=== PATIENT | female | born 1960 | race Caucasian/White ===

== ENCOUNTER → 2017-06-03 | Outpatient (CLI) | payer OTHER ==
--- NOTE | 2017-06-03 13:26 | REP ---
BILATERAL DIGITAL SCREENING MAMMOGRAM: 06/03/2017 COMPARISON: 04/15/2016, 04/14/2015. CLINICAL HISTORY: Screening mammogram. No current complaint, personal history of breast cancer but there is a family history of maternal breast cancer at age 55 and breast cancer in a grandmother. FINDINGS. Standard two-view mammography performed. There are a few scattered fibroglandular elements in the breast parenchyma in a pattern and distribution grossly unchanged but which might obscure a lesion. In the upper outer quadrant of the right breast about the 10:30 position in the anterior one-third of the breast is a 6 x 5 mm oval nodule, new since the previous two examinations. There are no suspicious clusters of microcalcification, areas of architectural distortion, dominant masses or other secondary signs of malignancy. IMPRESSION: BIRADS ACR category 0, incomplete. Needs further imaging evaluation. In the upper outer quadrant right breast about the 10:30 position in the anterior one-third of that breast is a new 6 x 5 mm oval nodule. This warrants further evaluation with diagnostic mammography and ultrasound. This mammogram was interpreted with the aid of an FDA-approved computer-aided detection system. A. Negative x-ray reports should not delay biopsy if a dominant or clinically suspicious mass is present. B. Four to eight percent of cancers are not identified by x-ray. C. Adenosis and dense breasts may obscure an underlying neoplasm. The patient states that she/he has not had a clinical breast exam in over a year. The patient letter being requested is M4 Signed by Alfredo Fair MD 06/03/2017 07:01 P
== END ==
LOC: M RAD 11:45
PROVIDERS: ATTEND Family Medicine
DX: Z12.31 Encounter for screening mammogram for malignant neoplasm of breast (principal); Z80.3 Family history of malignant neoplasm of breast; R92.2 Inconclusive mammogram

== ENCOUNTER → 2017-06-11 | Outpatient (CLI) | payer OTHER ==
--- NOTE | 2017-06-11 12:32 | REP ---
DIAGNOSTIC MAMMOGRAM RIGHT BREAST WITH RIGHT BREAST ULTRASOUND: Diagnostic mammogram right breast is performed with multiple spot compression views obtained. These additional views confirm the presence of a small round nodule in the upper outer quadrant of the right breast measuring about 6 mm in diameter. The majority of the margins appear fairly well defined and smoothly marginated. Real-time sonographic evaluation of the upper outer quadrant of the right breast demonstrates a lobulated cyst containing a septation, approximately 6 x 4 x 8 mm. This appears to correspond to the mammographic abnormality and is benign. IMPRESSION: The nodule in the upper outer quadrant of the right breast corresponds to a cyst by ultrasound and is benign. ACR 2. Recommend followup mammogram in 1 year. BI-RADS/ACR category 2 mammogram. Benign finding(s). Routine annual screening mammography (for women over age 40). Patient letter M1. Unreviewed
== END ==
LOC: M RAD 10:35
PROVIDERS: ATTEND Family Medicine
DX: Z12.31 Encounter for screening mammogram for malignant neoplasm of breast (principal); R92.8 Other abnormal and inconclusive findings on diagnostic imaging of breast
CPT/HCPCS: 76642; G0206

== ENCOUNTER → 2018-06-12 | Outpatient (CLI) | payer OTHER | LOC: M RAD 13:06 | DX: Z12.31 Encounter for screening mammogram for malignant neoplasm of breast (principal) | CPT/HCPCS: 77067 ==

== ENCOUNTER → 2019-11-05 | Outpatient (CLI) | payer OTHER ==
--- NOTE | 2019-11-05 11:46 | REPMRS ---
Patient History The patient states she has not had a clinical breast exam in over a year. Family history of unknown cancer at age 55 in mother, breast cancer at age 50 or over in maternal grandmother. Digital Mammo Screening Bilat: November 05, 2019 - Exam #: [id number] Bilateral CC and MLO view(s) were taken. Technologist: Kylie Lomax, Technologist Prior study comparison: June 12, 2018, bilateral digital mammo screening bilat performed at [facility]. June 03, 2017, bilateral digital mammo screening bilat performed at [facility]. April 15, 2016, bilateral digital mammo screening bilat performed at [facility]. April 14, 2015, bilateral digital mammo screening bilat performed at [facility]. FINDINGS: There are scattered fibroglandular densities. There has been no change in the appearance of the mammogram from the prior studies. There is a mild amount of scattered fibroglandular density which is fairly symmetric. There is no interval development of dominant mass, architectural distortion, or grouped microcalcification suggestive of malignancy. Assessment: BI-RADS/ACR category 1 mammogram. Negative Mammogram. Recommendation Routine screening mammogram of both breasts in 1 year (for women over age 40). This patient's Lifetime Breast Cancer Risk is estimated at 17.1 %. This mammogram was interpreted with the aid of an FDA-approved computer-aided dectection system. Electronically Signed By: Teddy Simms MD 11/05/19 [id number]
== END ==
LOC: M RAD 10:15
PROVIDERS: ATTEND Family Medicine
DX: Z12.31 Encounter for screening mammogram for malignant neoplasm of breast (principal); Z80.9 Family history of malignant neoplasm, unspecified

== ENCOUNTER → 2021-01-04 | Outpatient (CLI) | payer OTHER ==
--- NOTE | 2021-01-04 09:18 | REPMRS ---
Patient History The patient states she has not had a clinical breast exam in over a year. Patient is postmenopausal. Family history of unknown cancer at age 55 in mother, breast cancer at age 50 or over in maternal grandmother. Benign excisional biopsy of the right breast, 2017. 3D TOMOSYNTHESIS WAS PERFORMED. The [facility] lifetime risk for breast cancer is 16.7%. Volpara breast density b. Digital Woman Screen Mammo: January 04, 2021 - Exam #: [id number] Bilateral CC and MLO view(s) were taken. Technologist: Tiffanie Oliveira, Technologist Prior study comparison: November 05, 2019, bilateral digital mammo screening bilat, performed at [facility]. June 12, 2018, bilateral digital mammo screening bilat, performed at [facility]. FINDINGS: There are scattered fibroglandular densities. There has been no change in the appearance of the mammogram from the prior studies. There is a mild amount of residual fibroglandular tissue which is fairly symmetric. There is no interval development of dominant mass, architectural distortion, or clustered microcalcification suggestive of malignancy. Assessment: BI-RADS/ACR category 1 mammogram. Negative Mammogram. Recommendation Routine screening mammogram in 1 year (for women over age 40). This mammogram was interpreted with the aid of an FDA-approved computer-aided dectection system. Electronically Signed By: Bandar Colin MD 01/04/21 [id number]
== END ==
LOC: M WHC 07:53
PROVIDERS: ATTEND Family Medicine
DX: Z12.31 Encounter for screening mammogram for malignant neoplasm of breast (principal); Z80.9 Family history of malignant neoplasm, unspecified; Z86.018 Personal history of other benign neoplasm

== ENCOUNTER → 2022-05-31 | Outpatient (CLI) | payer OTHER | LOC: M WHC 07:37 | PROVIDERS: ATTEND Family Medicine | DX: Z12.31 Encounter for screening mammogram for malignant neoplasm of breast (principal) ==

== ENCOUNTER 2023-05-15 16:35 | Emergency (ER) | payer OTHER ==
[~2023-05-15] VITALS: Ht 160 cm; Wt 95.5 kg
[2023-05-15 17:40] LABS: BASO # 0.1 10^3/uL (0.0-0.2); BASO % 0.7 % (0.0-1.0); EOS # 0.2 10^3/uL (0.0-0.5); EOS % 2.1 % (0.0-3.0); HEMATOCRIT 38.1 % (36.0-47.0); HEMOGLOBIN 12.4 g/dl (12.0-15.5); LYMPH # 3.3 10^3/uL (1.5-5.0); LYMPH % 38.2 % (24.0-44.0); MEAN CORPUSCULAR HEMOGLOBIN 29.3 pg (27.0-33.0); MEAN CORPUSCULAR HGB CONC 32.5 g/dl (32.0-36.5); MEAN CORPUSCULAR VOLUME 90.1 fl (80.0-96.0); MONO # 0.6 10^3/uL (0.0-0.8); MONO % 6.4 % (2.0-8.0); NEUTROPHILS # 4.5 10^3/uL (1.5-8.5); NEUTROPHILS % 52.4 % (36.0-66.0); PLATELET COUNT, AUTOMATED 248 10^3/uL (150-450); RED BLOOD COUNT 4.23 10^6/uL (4.00-5.40); WHITE BLOOD COUNT 8.6 10^3/uL (4.0-10.0)
[2023-05-15 18:07] LABS: CK-MB VALUE MASS 2.3 NG/ML (<3.6)
[2023-05-15 18:08] LABS: BLOOD UREA NITROGEN 14 MG/DL (9-23); CALCIUM LEVEL 8.9 MG/DL (8.3-10.6); CARBON DIOXIDE LEVEL 25 MMOL/L (20-31); CHLORIDE LEVEL 107 MMOL/L (98-107); CPK CREATINE PHOSPHOKINASE 169 U/L (34-145); CREATININE FOR GFR 0.62 MG/DL (0.55-1.30); GLOMERULAR FILTRATION RATE > 60.0 (>45); GLUCOSE, FASTING 97 MG/DL (74-106); MB/CK RELATIVE INDEX 1.36 (< OR =4); POTASSIUM SERUM 4.2 MMOL/L (3.5-5.1); SODIUM LEVEL 139 MMOL/L (136-145)
[2023-05-15] MEDS ORDERED: ISOVUE-370 76% 100ML VIAL As Ordered ONE (18:47)
[2023-05-15] MEDS ORDERED: CETI-24 (19:51)
[2023-05-15] MEDS ORDERED: ECOT81TA5 PO (19:51)
[2023-05-15] MEDS ORDERED: DEEP (19:51)
[2023-05-15] MEDS ORDERED: DOXY100T (19:51)
[2023-05-15] MEDS ORDERED: METF-838 (19:51)
[2023-05-15] MEDS ORDERED: ASPI81CH48 (19:51)
[2023-05-15] MEDS ORDERED: ATOR40TA75 (19:51)
[2023-05-15] MEDS ORDERED: ISOS1TAB35 PO (20:02)
[2023-05-15 20:42] VITALS: BP 150/86; TEMP 97.3; O2SAT 98
== END 2023-05-15 20:44 | disposition home or self-care (01) ==
LOC: M ED 16:35
DX: R07.89 Other chest pain (principal); R91.1 Solitary pulmonary nodule; R73.03 Prediabetes; E78.5 Hyperlipidemia, unspecified; J45.909 Unspecified asthma, uncomplicated; Z82.49 Family history of ischemic heart disease and other diseases of the circulatory system; Z79.84 Long term (current) use of oral hypoglycemic drugs; Z79.82 Long term (current) use of aspirin; Z79.899 Other long term (current) drug therapy
CPT/HCPCS: 71045; 71275; 80048; 82550; 82553; 84484; 85025; 93005; 99284; Q9967

== ENCOUNTER → 2023-07-01 | Outpatient (CLI) | payer OTHER ==
[~2023-07-01] MED LIST: ASPI81CH48; ATOR40TA75; CETI-24; DEEP; DOXY100T; ECOT81TA5 PO; ISOS1TAB35 PO; METF-838
== END ==
LOC: M SLEEP HO 11:23
PROVIDERS: ATTEND Internal Medicine Cardiovascular Disease
DX: R06.83 Snoring (principal)

== ENCOUNTER → 2023-07-02 | Outpatient (CLI) | payer OTHER | LOC: M WHC 07:29 | PROVIDERS: ATTEND Family Medicine | DX: Z12.31 Encounter for screening mammogram for malignant neoplasm of breast (principal); Z80.3 Family history of malignant neoplasm of breast ==

== ENCOUNTER → 2024-11-09 | Outpatient (CLI) | payer OTHER | LOC: M WHC 07:41 | PROVIDERS: ATTEND Nurse Practitioner Family | DX: Z12.31 Encounter for screening mammogram for malignant neoplasm of breast (principal); R92.313 Mammographic fatty tissue density, bilateral breasts ==